=== PATIENT | female | born 1955 | race African-American/Black ===

== ENCOUNTER 2017-09-21 10:37 | Emergency (ER) | payer SELFPAY, OTHER ==
[2017-09-21] MEDS: LIDOCAINE WITH 8.4% SOD BICARB 3 ML DISP.SYRIN. INJ (10:53)
== END 2017-09-21 11:27 | disposition home or self-care (01) ==
LOC: ER 10:37
DX: L02.31 Cutaneous abscess of buttock (principal); E11.9 Type 2 diabetes mellitus without complications; Z88.5 Allergy status to narcotic agent
CPT/HCPCS: 10060; 99283

== ENCOUNTER → 2021-02-18 | Outpatient (CLI) | payer OTHER ==
[2017-09-21 10:40] VITALS: BP 141/67
[~2021-02-18] MED LIST: CEPH-264 PO; HYDR-3164 PO; SULF1TAB24 PO
--- NOTE | 2021-02-18 14:26 | RAD ---
EXAM: Chest, 2 views. HISTORY: COPD. COMPARISON: None. FINDINGS: 2 views of the chest are obtained. There is suspected bilateral lower lobe atelectasis or i nterstitial infiltrate. There is no consolidation, pleural effusion or pneumothorax. The heart is nor mal in size. IMPRESSION: Bilateral lower lobe atelectasis or interstitial infiltrate. Electronically signed by: Kacie Baum MD (02/18/2021 2:24 PM) [id number]
== END ==
LOC: RAD 13:40
PROVIDERS: ATTEND Anesthesiology Pain Medicine
DX: J98.11 Atelectasis (principal); J44.9 Chronic obstructive pulmonary disease, unspecified
CPT/HCPCS: 71046